=== PATIENT | female | born 1995 | race Caucasian/White ===

== ENCOUNTER 2021-08-17 18:29 | Emergency (ER) | payer OTHER ==
[~2021-08-17] VITALS: Ht 170.2 cm; Wt 58.2 kg
[2021-08-17] MEDS ORDERED: PRENTAB53 PO (18:36)
[2021-08-17] MEDS ORDERED: CELE20TA PO (18:37)
[2021-08-17 19:21] LABS: BASO % 0.4 % (0.0-1.0); EOS # 0.1 10^3/uL (0.0-0.5); EOS % 0.7 % (0.0-3.0); HEMOGLOBIN 13.1 g/dl (12.0-15.5); LYMPH % 21.3 % (24.0-44.0); MEAN CORPUSCULAR HEMOGLOBIN 34.1 pg (27.0-33.0); MEAN CORPUSCULAR HGB CONC 35.4 g/dl (32.0-36.5); MEAN CORPUSCULAR VOLUME 96.4 fl (80.0-96.0); MONO # 0.7 10^3/uL (0.0-0.8); MONO % 7.1 % (2.0-8.0); NEUTROPHILS # 6.6 10^3/uL (1.5-8.5); NEUTROPHILS % 69.8 % (36.0-66.0); PLATELET COUNT, AUTOMATED 230 10^3/uL (150-450); RED BLOOD COUNT 3.84 10^6/uL (4.00-5.40); WHITE BLOOD COUNT 9.5 10^3/uL (4.0-10.0)
[2021-08-17 19:23] LABS: APPEARANCE, URINE CLEAR (CLEAR); BACTERIA, URINE AUTO 1+ (NEGATIVE); BILIRUBIN, URINE AUTO NEGATIVE (NEGATIVE); BLOOD, URINE BLOOD NEGATIVE (NEGATIVE); COLOR, URINE STRAW (YELLOW); GLUCOSE, URINE (UA) AUTO NEGATIVE (NEGATIVE); KETONE, URINE AUTO NEGATIVE (NEGATIVE); LEUKOCYTE ESTERASE, URINE AUTO NEGATIVE (NEGATIVE); MUCUS, URINE SMALL (NEGATIVE); NITRITE, URINE AUTO NEGATIVE (NEGATIVE); PROTEIN, URINE AUTO NEGATIVE (NEGATIVE); RBC, URINE AUTO 0 /HPF (0-3); SPECIFIC GRAVITY URINE AUTO 1.003 (1.002-1.035); SQUAMOUS EPITHELIAL CELL UR AU 0 /HPF (0-6); UROBILINOGEN, URINE AUTO 0.2 mg/dL (0.0-2.0); WBC, URINE AUTO 0 /HPF (0-3)
[2021-08-17 20:42] LABS: GC DNA AMPLIFICATION NEGATIVE (NEGATIVE)
[2021-08-17 20:45] VITALS: BP 130/66
== END 2021-08-17 20:46 | disposition home or self-care (01) ==
LOC: M ED 18:29
DX: O26.852 Spotting complicating pregnancy, second trimester (principal); R10.2 Pelvic and perineal pain; F41.8 Other specified anxiety disorders; Z3A.17 17 weeks gestation of pregnancy; Z79.899 Other long term (current) drug therapy

== ENCOUNTER 2022-01-19 05:37 | Inpatient (IN) | payer OTHER ==
[~2022-01-19] VITALS: Ht 170.2 cm; Wt 74.8 kg
[2022-01-19] VITALS (9 sets, daily range): BP systolic 120–142; BP diastolic 68–87
[~2022-01-19 05:37] MED LIST: CELE20TA PO; PRENTAB53 PO
[2022-01-19] MEDS ORDERED: LACTATED RINGER'S 1000 ML IV STA (09:38)
[2022-01-19] MEDS ORDERED: LR 1,000 ML IV SCH (09:40)
[2022-01-19] MEDS ORDERED: LIDOCAINE 1% MDV 20ML VIAL INFIL PRN (09:40)
[2022-01-19] MEDS ORDERED: OXYTOCIN INJ 10 UNITS/ML VIAL (J2590) IM PRN (09:40)
[2022-01-19] MEDS ORDERED: METHYLERGONOVINE MALEATE 0.2 MG/ML VIAL (J2210) IM PRN (09:40)
[2022-01-19] MEDS ORDERED: OXYTOCIN DRIP 30 UNITS in IV 1 EA IV PRN ×6 (09:40)
[2022-01-19] MEDS ORDERED: OXYTOCIN INJ 10 UNITS/ML VIAL (J2590) IV PRN (09:40)
[2022-01-19] MEDS ORDERED: TRANEXAMIC ACID INJection 1,000 MG in NS 100 ML IV PRN (09:40)
[2022-01-19 09:46] LABS: HEMATOCRIT 34.6 % (36.0-47.0); HEMOGLOBIN 12.3 g/dl (12.0-15.5); MEAN CORPUSCULAR HEMOGLOBIN 34.5 pg (27.0-33.0); MEAN CORPUSCULAR HGB CONC 35.5 g/dl (32.0-36.5); MEAN CORPUSCULAR VOLUME 96.9 fl (80.0-96.0); PLATELET COUNT, AUTOMATED 157 10^3/uL (150-450); RED BLOOD COUNT 3.57 10^6/uL (4.00-5.40); WHITE BLOOD COUNT 13.4 10^3/uL (4.0-10.0)
[2022-01-19] MEDS ORDERED: PROMETHAZINE 25MG/ML 1ML VIAL IV ONE (09:55)
[2022-01-19] MEDS ORDERED: BUTORPHANOL 2 MG/ML INJ (J0595) IV ONE (09:55)
[2022-01-19] MEDS ORDERED: FERR325T3 PO (11:54)
[2022-01-19] MEDS ORDERED: ONDANSETRON 4MG 2ML VIAL IV ONE (21:55)
[2022-01-19] MEDS ORDERED: DIBUCAINE 1% OINTMENT 30GM TOP PRN (23:05)
[2022-01-19] MEDS ORDERED: MOM 30ML SUSPENSION UDC PO PRN (23:05)
[2022-01-19] MEDS ORDERED: ACETAMINOPHEN 500 MG TAB PO PRN (23:05)
[2022-01-19] MEDS ORDERED: RHOGAM 300 MCG (1500 IU) INJ (J2790) IM SCH (23:05)
[2022-01-19] MEDS: IBUPROFEN 800 MG TAB PO PRN (23:34)
[2022-01-20] VITALS (18 sets, daily range): BP systolic 81–128; BP diastolic 50–90
[2022-01-20] MEDS ORDERED: ceFAZolin 2 GM/D5W 50 ML IV BAG (J0690 PER 500MG) As Ordered ONE (00:28)
[2022-01-20] MEDS: CARBOPROST TROMETHAMINE 250 MCG/ML AMP IM PRN ×2 (00:54→00:55)
[2022-01-20] MEDS ORDERED: LOMOTIL 2.5MG/0.025MG TABLET PO ONE (01:00)
[2022-01-20] MEDS ORDERED: ONDANSETRON 4MG 2ML VIAL IV ONE (01:05)
[2022-01-20] MEDS ORDERED: ceFAZolin SOD 2 GM in IV 1 EA IV ONE (01:20)
[2022-01-20 08:46] LABS: HEMATOCRIT 31.2 % (36.0-47.0); HEMOGLOBIN 10.9 g/dl (12.0-15.5); MEAN CORPUSCULAR HGB CONC 34.9 g/dl (32.0-36.5); MEAN CORPUSCULAR VOLUME 94.5 fl (80.0-96.0); PLATELET COUNT, AUTOMATED 135 10^3/uL (150-450); WHITE BLOOD COUNT 20.6 10^3/uL (4.0-10.0)
[2022-01-20] MEDS: FERROUS SULFATE 325MG TAB PO SCH (09:26)
[2022-01-20] MEDS: PRENATAL VITAMINS CHEWABLE TABLET PO SCH (09:27)
[2022-01-20] MEDS: DOCUSATE SODIUM 100MG CAPSULE PO SCH ×2 (09:27→20:11)
[2022-01-20] MEDS: CitaloPRAM (CeleXA) 20 MG TAB PO SCH (09:27)
[2022-01-20] MEDS: IBUPROFEN 800 MG TAB PO PRN (12:41)
[2022-01-21 06:00] VITALS: BP 95/54
[2022-01-21] MEDS: CitaloPRAM (CeleXA) 20 MG TAB PO SCH (08:26)
[2022-01-21] MEDS: DOCUSATE SODIUM 100MG CAPSULE PO SCH (08:26)
[2022-01-21] MEDS: FERROUS SULFATE 325MG TAB PO SCH (08:26)
[2022-01-21] MEDS: PRENATAL VITAMINS CHEWABLE TABLET PO SCH (08:26)
== END 2022-01-21 15:31 | disposition home or self-care (01) | DRG 806 ==
LOC: M LDO 05:37 → M LDI 10:03 → UNDODISIN 13:09 → M OBS 01-20 06:38
PROVIDERS: ADMIT Obstetrics & Gynecology; ATTEND Obstetrics & Gynecology
PROC: 10E0XZZ Delivery of Products of Conception, External Approach (ICD-10-PCS; principal; 2022-01-19)
PROC: 0HQ9XZZ Repair Perineum Skin, External Approach (ICD-10-PCS; 2022-01-19)
PROC: 10907ZC Drainage of Amniotic Fluid, Therapeutic from Products of Conception, Via Natural or Artificial Opening (ICD-10-PCS; 2022-01-19)
PROC: 30233N1 Transfusion of Nonautologous Red Blood Cells into Peripheral Vein, Percutaneous Approach (ICD-10-PCS; 2022-01-20)
DX: O69.2XX0 Labor and delivery complicated by other cord entanglement, with compression, not applicable or unspecified (principal); Z37.0 Single live birth; O72.2 Delayed and secondary postpartum hemorrhage; Z3A.39 39 weeks gestation of pregnancy; O70.0 First degree perineal laceration during delivery; F32.A Depression, unspecified; O99.344 Other mental disorders complicating childbirth; Z86.16 Personal history of COVID-19

== ENCOUNTER 2022-07-13 08:50 | Emergency (ER) | payer OTHER ==
[~2022-07-13] VITALS: Ht 170.2 cm; Wt 63.7 kg
[~2022-07-13 08:50] MED LIST changes: +FERR325T3 PO
[2022-07-13 09:33] LABS: BASO # 0.1 10^3/uL (0.0-0.2); BASO % 0.9 % (0.0-1.0); EOS # 0.1 10^3/uL (0.0-0.5); EOS % 0.8 % (0.0-3.0); HEMATOCRIT 39.1 % (36.0-47.0); HEMOGLOBIN 13.6 g/dl (12.0-15.5); LYMPH # 1.8 10^3/uL (1.5-5.0); LYMPH % 23.9 % (24.0-44.0); MEAN CORPUSCULAR HEMOGLOBIN 32.1 pg (27.0-33.0); MEAN CORPUSCULAR HGB CONC 34.8 g/dl (32.0-36.5); MEAN CORPUSCULAR VOLUME 92.2 fl (80.0-96.0); MONO # 0.5 10^3/uL (0.0-0.8); MONO % 7.1 % (2.0-8.0); NEUTROPHILS # 5.1 10^3/uL (1.5-8.5); NEUTROPHILS % 66.9 % (36.0-66.0); PLATELET COUNT, AUTOMATED 308 10^3/uL (150-450); RED BLOOD COUNT 4.24 10^6/uL (4.00-5.40); WHITE BLOOD COUNT 7.7 10^3/uL (4.0-10.0)
[2022-07-13] MEDS ORDERED: KETOROLAC 30 MG/ML 1ML VIAL IV ONE (09:50)
[2022-07-13] MEDS ORDERED: NS 1,000 ML IV ONE (09:50)
[2022-07-13] MEDS ORDERED: ISOVUE-370 76% 100ML VIAL As Ordered ONE (09:57)
[2022-07-13 10:06] LABS: RSV AMPLIFICATION NEGATIVE (NEGATIVE)
[2022-07-13 10:08] LABS: ALBUMIN 4.2 G/DL (3.2-5.2); BILIRUBIN,DIRECT 0.1 MG/DL (<0.4); BILIRUBIN,TOTAL 0.7 MG/DL (0.3-1.2); TOTAL PROTEIN 7.3 G/DL (5.7-8.2)
[2022-07-13 10:58] VITALS: BP 112/59
== END 2022-07-13 11:00 | disposition home or self-care (01) ==
LOC: M ED 08:50
DX: R10.31 Right lower quadrant pain (principal); R18.8 Other ascites; F41.9 Anxiety disorder, unspecified; Z79.810 Long term (current) use of selective estrogen receptor modulators (SERMs); Z79.891 Long term (current) use of opiate analgesic
CPT/HCPCS: 36415; 74177; 80047; 80076; 81002; 83690; 84702; 85025; 87631; 96361; 96374; 99284; J1885

== ENCOUNTER → 2023-05-06 | Outpatient (REF) | LOC: M EMP 08:21 | PROVIDERS: ATTEND Family Medicine | DX: Z11.52 Encounter for screening for COVID-19 (principal) ==

== ENCOUNTER → 2023-09-05 | Day surgery (SDC) | payer OTHER ==
[~2023-09-05] VITALS: Ht 170.2 cm; Wt 69.0 kg
[~2023-09-05] MED LIST changes: +ACETAMINOPHEN 1000MG 100ML IV BAG As Ordered ONE; +COLA100C5 PO; +IBUP80TA PO; +KETOROLAC 30 MG/ML 1ML VIAL IV PRN; +LIDOCAINE 2% 100MG/5ML SDV (FOR ANES.) As Ordered ONE; +LR 1,000 ML IV SCH; +MED REC IN PROGRESS XX SCH; +MIDAZOLAM INJ 2MG/2ML VIAL As Ordered ONE; +MORPHINE 2 MG/ML 1ML VIAL IV PRN; +ONDA4TAB6 PO; +ONDANSETRON 4MG 2ML VIAL As Ordered ONE; +ONDANSETRON 4MG 2ML VIAL IV PRN; +PROMETHAZINE 25MG/ML 1ML VIAL IV PRN; +ROCURONIUM BROMIDE 50MG/5ML VIAL As Ordered ONE; +SUCCINYLCHOLINE 100MG/5ML SYRINGE As Ordered ONE; +UNRESOLVED CLARIFICATION ENTRY XX SCH; +fentaNYL 100 MCG/2 ML INJECTION As Ordered ONE; +fentaNYL 100 MCG/2 ML INJECTION IV PRN; +propofoL 200 MG/20 ML VIAL As Ordered ONE
[2023-09-05 16:06] LABS: BASO # 0.1 10^3/uL (0.0-0.2); BASO % 0.5 % (0.0-1.0); EOS # 0.1 10^3/uL (0.0-0.5); EOS % 0.7 % (0.0-3.0); HEMATOCRIT 37.2 % (36.0-47.0); LYMPH # 1.9 10^3/uL (1.5-5.0); LYMPH % 19.6 % (24.0-44.0); MEAN CORPUSCULAR HEMOGLOBIN 32.1 pg (27.0-33.0); MEAN CORPUSCULAR HGB CONC 34.9 g/dl (32.0-36.5); MEAN CORPUSCULAR VOLUME 91.9 fl (80.0-96.0); MONO # 0.7 10^3/uL (0.0-0.8); MONO % 6.8 % (2.0-8.0); NEUTROPHILS % 72.2 % (36.0-66.0); PLATELET COUNT, AUTOMATED 278 10^3/uL (150-450); RED BLOOD COUNT 4.05 10^6/uL (4.00-5.40); WHITE BLOOD COUNT 9.7 10^3/uL (4.0-10.0)
[2023-09-05] MEDS: NS 1,000 ML IV ONE (16:30)
[2023-09-05 17:16] LABS: APPEARANCE, URINE HAZY (CLEAR); BACTERIA, URINE AUTO NEGATIVE (NEGATIVE); BILIRUBIN, URINE AUTO NEGATIVE (NEGATIVE); BLOOD, URINE BLOOD 3+ (NEGATIVE); COLOR, URINE YELLOW (YELLOW); GLUCOSE, URINE (UA) AUTO NEGATIVE (NEGATIVE); KETONE, URINE AUTO NEGATIVE (NEGATIVE); LEUKOCYTE ESTERASE, URINE AUTO NEGATIVE (NEGATIVE); NITRITE, URINE AUTO NEGATIVE (NEGATIVE); PROTEIN, URINE AUTO NEGATIVE (NEGATIVE); RBC, URINE AUTO TNTC /HPF (0-3); SPECIFIC GRAVITY URINE AUTO 1.008 (1.002-1.035); SQUAMOUS EPITHELIAL CELL UR AU 0 /HPF (0-6); UROBILINOGEN, URINE AUTO 0.2 mg/dL (0.0-2.0); WBC, URINE AUTO 0 /HPF (0-3)
[2023-09-05 18:48] LABS: HEMATOCRIT 33.3 % (36.0-47.0); HEMOGLOBIN 11.7 g/dl (12.0-15.5); MEAN CORPUSCULAR HEMOGLOBIN 32.5 pg (27.0-33.0); MEAN CORPUSCULAR HGB CONC 35.1 g/dl (32.0-36.5); MEAN CORPUSCULAR VOLUME 92.5 fl (80.0-96.0); PLATELET COUNT, AUTOMATED 254 10^3/uL (150-450); WHITE BLOOD COUNT 10.6 10^3/uL (4.0-10.0)
[2023-09-05] MEDS: TRANEXAMIC ACID 100 MG/ML 10ML VIAL As Ordered ONE (20:22)
[2023-09-05 21:10] VITALS: BP 111/75; TEMP 97.5; O2SAT 99
[2023-09-05] MEDS: DOXYCYCLINE HYCLATE 100MG TABLET PO ONE (21:13)
== END | disposition home or self-care (01) ==
LOC: M ED 15:04 → M SDC 19:05 → M ED 19:55
PROVIDERS: ATTEND Obstetrics & Gynecology
DX: O03.1 Delayed or excessive hemorrhage following incomplete spontaneous abortion (principal); N36.8 Other specified disorders of urethra; Z90.79 Acquired absence of other genital organ(s); Z90.49 Acquired absence of other specified parts of digestive tract
CPT/HCPCS: 59812; 76801; 76817; 81001; 84702; 85025; 85027; 86850; 86900; 86901; 86920; 88305; 93976; 99284; J0131; J1100; J2250; J2405; J3010; S0191

== ENCOUNTER → 2024-04-26 | Outpatient (CLI) | payer OTHER ==
[~2024-04-26] MED LIST changes: -ACETAMINOPHEN 1000MG 100ML IV BAG As Ordered ONE; -KETOROLAC 30 MG/ML 1ML VIAL IV PRN; -LIDOCAINE 2% 100MG/5ML SDV (FOR ANES.) As Ordered ONE; -LR 1,000 ML IV SCH; -MED REC IN PROGRESS XX SCH; -MIDAZOLAM INJ 2MG/2ML VIAL As Ordered ONE; -MORPHINE 2 MG/ML 1ML VIAL IV PRN; +ONDA-282 PO; -ONDA4TAB6 PO; -ONDANSETRON 4MG 2ML VIAL As Ordered ONE; -ONDANSETRON 4MG 2ML VIAL IV PRN; -PROMETHAZINE 25MG/ML 1ML VIAL IV PRN; -ROCURONIUM BROMIDE 50MG/5ML VIAL As Ordered ONE; -SUCCINYLCHOLINE 100MG/5ML SYRINGE As Ordered ONE; -UNRESOLVED CLARIFICATION ENTRY XX SCH; -fentaNYL 100 MCG/2 ML INJECTION As Ordered ONE; -fentaNYL 100 MCG/2 ML INJECTION IV PRN; -propofoL 200 MG/20 ML VIAL As Ordered ONE
== END ==
LOC: M RAD 16:58
PROVIDERS: ATTEND Family Medicine
DX: R16.1 Splenomegaly, not elsewhere classified (principal)